=== PATIENT | female | born 1965 | race Hispanic/Latino ===

== ENCOUNTER 2025-04-13 11:27 | Emergency (ER) | payer BC, OTHER ==
[~2025-04-13] VITALS: Ht 162.6 cm; Wt 108.9 kg
--- NOTE | 2025-04-13 11:45 | EKG ---
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
[2025-04-13] MEDS: 0.9%NACL 1000ML 1,000 ML IV ONE (11:46)
--- NOTE | 2025-04-13 11:49 | ERN ---
General Chief Complaint: Dizzy/Light Headed Stated Complaint: DIZZY Time Seen by MD: 11:28 Source: patient History of Present Illness Initial Comments Patient is a 59-year-old female coming in complaining of dizziness. Per patient the dizziness is a it is increased when she rotates her head. She also states that while standing still she does not feel dizzy. No other current complaints. Allergies: Coded Allergies: morphine (Unverified Allergy, Unknown, 04/13/25) Past Medical History Past Medical History: Cancer, Hypertension Past Surgical History: Appendectomy, Other Surgical History Other: breast sx ROS Dictation CONSTITUTIONAL: No chills, no fever, no weakness, no diaphoresis, no malaise. HEAD/FACE: No signs of trauma. EENT: No eye pain, no blurred vision, no tearing, no double vision, no ear pain, no ear discharge, no nose pain, no nasal congestion, no throat pain, no throat swelling, no mouth pain. RESPIRATORY: No cough, no orthopnea, no SOB, no stridor, no wheezing. CARDIOVASCULAR: No chest pain, no edema, no palpitations, no syncope. GASTROINTESTINAL/ABDOMINAL: No abdominal pain, no constipation, no diarrhea, no nausea, no vomiting. GENITOURINARY: No abnormal discharge, no dysuria, no frequent urination, no hematuria. No complaints of pain in the genitals. MUSCULOSKELETAL: No back pain, no gout, no joint pain, no joint swelling, no muscle pain, no muscle stiffness, no neck pain. INTEGUMENTARY: No change in color, no change in hair/nails, no dryness, no lesion, no lumps, no rash. NEUROLOGICAL/PSYCH: No anxiety, not depressed, no emotional problem, no headache, no numbness, no pre-existing deficit, no history of seizures, no tremors, no weakness. HEMATOLOGIC/LYMPHATIC: Not anemic, no history of blood clots, no apparent bleeding, no bruising, glands not swollen. All Systems Negative, Except as Noted. Physical Exam Physical Exam Dictation VITAL SIGNS: Reviewed. GENERAL APPEARANCE: Alert, oriented x3, no acute distress, obese. HEAD AND FACE: Non-traumatic. EYES: PERRL, pink conjunctivas, eyelid no trauma, anterior chamber clear. EARS: Pinnas intact and no signs of trauma or erythema. Ear canals clear and no discharge. TMs no erythema. NOSE: No discharge, no bleeding. OROPHARYNX: Mouth normal, teeth no caries, tongue pink. Pharynx clear, no erythema. Tonsils no exudates, no abscesses noted. Mucous membrane moist. NECK: Supple, non-tender, no thyromegaly, no masses, no JVD, no bruits. BREAST: Deferred. CHEST: No tenderness, no crepitus, no paradoxical movement, no retractions. LUNGS: Clear, well-ventilated, symmetric, no rales, no wheezing, no rhonchi, no stridor, good breath sounds bilaterally. HEART: Regular rate, regular rhythm, no murmur, no gallops. VASCULAR: No peripheral edema. ABDOMEN: Soft, positive bowel sounds, nondistended, no guarding, nontender, no rebound, no masses no hepatomegaly, no splenomegaly, no Snow's sign, no hernias. RECTAL: Deferred. GENITAL: Deferred. NEUROLOGICAL: Normal speech, gross motor function intact, gross sensory function intact. MUSCULOSKELETAL: Neck nontender, full range of motion, back nontender, full range of motion. EXTREMITIES: Nontender, full range of motion. SKIN: Color pink, dry, no turgor, no rash, no lacerations, no abrasions, no contusions. LYMPHATICS: Deferred. Results Laboratory and Microbiology Lab and Micro Result Laboratory Tests Test 04/13/25 11:40 04/13/25 12:13 White Blood Count 4.2 K/uL (4.8-10.8) L Red Blood Count 4.54 MIL/uL (4.00-5.50) Hemoglobin 12.4 g/dL (12.0-16.0) Hematocrit 38.6 % (36-48) Mean Corpuscular Volume 85.0 fL (79-99) Mean Corpuscular Hemoglobin 27.3 pg (27.0-33.0) Mean Corpuscular Hemoglobin Concent 32.1 g/dL (32.0-36.0) Red Cell Distribution Width 13.2 % (11.0-15.5) Platelet Count 232 K/uL (130-400) Mean Platelet Volume 10.6 fL (7.5-10.5) H Immature Granulocyte % (Auto) 0.2 % (0-1) Neutrophils (%) (Auto) 68.4 % (40.0-77.0) Lymphocytes (%) (Auto) 24.7 % (21.0-51.0) Monocytes (%) (Auto) 5.7 % (3.0-13.0) Eosinophils (%) (Auto) 0.5 % (0.0-8.0) Basophils (%) (Auto) 0.5 % (0.0-5.0) Neutrophils # (Auto) 2.9 K/uL (1.8-7.7) Lymphocytes # (Auto) 1.0 K/uL (1.0-4.8) Monocytes # (Auto) 0.2 K/uL (0.1-1.0) Eosinophils # (Auto) 0.02 K/uL (0.00-0.70) Basophils # (Auto) 0.02 K/uL (0.00-0.20) Absolute Immature Granulocyte (auto 0.01 K/uL (0-1) Nucleated Red Blood Cells 0.0 % (0.0-0.19) Sodium Level 142 mmol/L (136-145) Potassium Level 3.8 mmol/L (3.5-5.1) Chloride Level 106 mmol/L (101-111) Carbon Dioxide Level 27 mmol/L (21-32) Blood Urea Nitrogen 13 mg/dL (7-18) Creatinine 0.8 mg/dL (0.5-1.0) Glomerular Filtration Rate Calc 85 mL/min (>90) Random Glucose 116 mg/dL (70-105) H Total Calcium 8.5 mg/dL (8.5-10.1) Magnesium Level 2.10 mg/dL (1.80-2.40) Troponin I High Sensitivity 4 ng/L (4-50) Urine Color LIGHT-YELLOW (YELLOW) Urine Appearance HAZY (CLEAR) Urine pH 7.5 (5.0-8.0) Urine Specific [place] 1.017 (1.001-1.031) Urine Protein NEGATIVE mg/dL (NEGATIVE) Urine Glucose (UA) NEGATIVE mg/dL (NEGATIVE) Urine Ketones NEGATIVE mg/dL (NEGATIVE) Urine Occult Blood NEGATIVE (NEGATIVE) Urine Nitrate 2+ (NEGATIVE) H Urine Bilirubin NEGATIVE mg/dL (NEGATIVE) Urine Urobilinogen 0.2 mg/dL (0.2-1.0) Urine Leukocyte Esterase NEGATIVE Patricia/uL Urine RBC 2-5 /HPF (0-1) H Urine WBC 2-5 /HPF (0-1) H Urine Squamous Epithelial Cells FEW /HPF (0-2) Urine Bacteria MOD /HPF (None Seen) Labs Reviewed?: Yes EKG/XRAY/US/CT/MRI EKG Comment 04/13/2025 time 11:39 a.m. Ventricular rate 64 Sinus rhythm [place] [address] wave elevation or depression X-RAY Comment IMAGING REPORT Signed PATIENT: MIKE PAUL MR#: [id number] : 1965 SEX: F AGE: 59 LOCATION: ED ORDER 1132 STATUS: REG ER REPORT#: [id number] SERVICE 1131 REASON: CP ORDERING PHYSICIAN: RAISA MEMBRENO MD PROCEDURE: CXR1VW - CHEST 1VW EXAM: Chest radiograph 1 view HISTORY: Chest pain COMPARISON: None FINDINGS: No pulmonary consolidations. No pleural effusion or pneumothorax. Normal cardiomediastinal silhouette and pulmonary vasculature. No suspicious osseous lesions. IMPRESSION: No acute cardiopulmonary disease. /[place] DICTATED BY: CLARENCE VALENTE MD DATE: 04/13/251429 ELECTRONICALLY SIGNED BY: CLARENCE VALENTE MD DATE: 04/13/251429 CT Scan Comment [id number] [id number] IMAGING REPORT Signed PATIENT: MIKE PAUL MR#: [id number] : 1965 SEX: F AGE: 59 LOCATION: ED ORDER 1143 STATUS: REG ER REPORT#: [id number] SERVICE 1142 REASON: vertigo ORDERING PHYSICIAN: RAISA MEMBRENO MD PROCEDURE: HEAD WO - CT HEAD/BRAIN W/O CONTRAST EXAM:CT Head Without IV Contrast CLINICAL HISTORY: Vertigo TECHNIQUE: Axial computed tomography images of the head/brain were obtained without intravenous contrast. COMPARISON: None provided. FINDINGS: BRAIN: No evidence of acute intracranial hemorrhage, mass lesion, or acute territorial infarct. No midline shift or extra-axial fluid collection seen. Mild cerebral atrophy is noted. VENTRICLES AND CISTERNS: Basal cisterns are patent. No hydrocephalus. ORBITS: Orbits and visualized globes appear unremarkable. SINUSES AND MASTOID AIR CELLS: Paranasal sinuses and mastoid air cells are clear. CALVARIUM AND BONES: No calvarial fracture or focal bony abnormality identified. SOFT TISSUES: Unremarkable. IMPRESSION: No acute intracranial abnormality detected. /[place] DICTATED BY: CLARENCE VALENTE MD DATE: 04/13/251504 ELECTRONICALLY SIGNED BY: CLARENCE VALENTE MD DATE: 04/13/251504 MDM MDM: Differential diagnosis: Dehydration, UTI, vertigo, sinusitis, Rationale: Tests considered and ordered secondary to shared decision making include: Previous outside records reviewed: Old ER visits. Risk of complication and/or morbidity or mortality of patient management: None Medications-Per medication reconciliation Need for hospitalization: Patient does not meet criteria for hospitalization. Need for emergency major/minor surgery: No There are no social concerns with this patient. Prescription drug management Prescriptions will include symptomatic care Patient's prior external medical records from other ER visits were reviewed by me as indicated. Prior testing and results from previous visits were reviewed. Prior tests were taken into account with medical decision making and resource utilization, independent historian/historians were used to obtain complete medical history. I independently interpreted the test that were performed, results were reviewed by me and considered findings on radiology if ordered. In his is a 59-year-old female coming in to be evaluated for dizziness. CT of the head and laboratory workup did not disclose acute findings. Urinary tract infection was found on urinary analysis patient had just finished antibiotics but still has a urinary tract infection. We will be switching antibiotics to Bactrim and I also advise her close follow up with PCP to make sure that the urinary tract infection has resolved. ED Course Orders Procedure Category Date Status Time Cbc With Differential LAB 04/13/25 Complete 11:31 Chest 1vw RAD 04/13/25 Resulted 11:31 12 Lead Ekg Tracing- EKG 04/13/25 Complete Technical 11:31 0.9%Nacl 1000ml (Ns PHA 04/13/25 Complete 1000ml) 12:00 Magnesium LAB 04/13/25 Complete 11:31 Troponin I High LAB 04/13/25 Complete Sensitivity 11:31 Urinalysis Profile LAB 04/13/25 Complete 11:31 Basic Metabolic Panel LAB 04/13/25 Complete 11:31 Ct Head/Brain W/O CT 04/13/25 Resulted Contrast 11:42 Meclizine Hcl 25 Mg PHA 04/13/25 Complete (Antivert 25 Mg) 12:00 Culture Urine BLAS 04/13/25 In Process 12:36 Current Medications Medications (Trade) Dose Ordered Sig/Pankaj Route PRN Reason Start Time Stop Time Status Last Admin Dose Admin Meclizine HCl (ANTIvert 25 mg) 25 mg ONCE ONCE PO 04/13/25 12:00 04/13/25 12:01 DC 04/13/25 12:07 Sodium Chloride 1,000 ml @ 0 mls/hr ONCE ONCE IV 04/13/25 12:00 04/13/25 12:01 DC 04/13/25 11:46 Vital Signs Date Time Temp Pulse Resp B/P (MAP) Pulse Ox O2 Delivery O2 Flow Rate FiO2 04/13/25 11:33 97.3 67 18 139/64 99 Room Air* 0 21 04/13/25 11:30 97.3 67 18 139/64 99 Room Air 0 DX & DISP Disposition: Discharge Departure Impression: Primary Impression: UTI (urinary tract infection) Additional Impression: Dehydration Condition: Stable Scripts Sulfamethoxazole/Trimethoprim (Bactrim Ds Tablet) 800 Mg-160 Mg Tablet 1 TAB PO BID for 10 Days, #20 TAB 0 Refills Prov: RAISA MEMBRENO MD 04/13/25 Additional Instructions: FOLLOW-UP WITH PRIMARY CARE PROVIDER IN 1 TO 2 DAYS. TAKE MEDICATIONS DIRECTED HERE IN THE EMERGENCY ROOM. OKAY TO CONTINUE HOME MEDICATIONS UNLESS OTHERWISE DISCUSSED DURING YOUR VISIT IN THE EMERGENCY ROOM TODAY. RETURN TO YOUR NEAREST EMERGENCY ROOM IF SYMPTOMS WORSEN OR IF THERE IS NO IMPROVEMENT. CALL 911 IF YOU NEED IMMEDIATE ASSISTANCE. TAKE TYLENOL FLAH-[id number]-DXLNPAM NEEDED AND IF NO CONTRAINDICATIONS ARE PRESENT. INCREASE ORAL HYDRATION. A WOUND CULTURE OR URINE CULTURE WAS ORDERED HERE IN THE EMERGENCY ROOM DEPARTMENT PLEASE FOLLOW-UP WITH PRIMARY CARE PROVIDER AND ADVISE THEM TO GET REPORTS FROM OUR FACILITY. IF YOU HAD ANY COTY WRAP/SPLINTS THAT WERE APPLIED HERE, PLEASE DO NOT REMOVE THEM UNTIL YOU SEE YOUR PRIMARY CARE OR SPECIALTY. Referrals: Referrals: KELLIE ALBARADO MD (PCP) Time of Disposition: 14:18 RAISA MEMBRENO MD Apr 13, 2025 11:49
[2025-04-13 11:51] LABS: IMMATURE GRANULOCYTE ABSOLUTE 0.01 K/uL (0-1); NUCLEATED RED BLOOD CELLS 0.0 % (0.0-0.19); PLATELET COUNT (AUTO) 232 K/uL (130-400); RED BLOOD CELL COUNT(AUTO) 4.54 MIL/uL (4.00-5.50); RED CELL DISTRIBUTION WIDTH 13.2 % (11.0-15.5); WHITE BLOOD COUNT (AUTO) 4.2 K/uL (4.8-10.8)
[2025-04-13 12:01] LABS: CREATININE 0.8 mg/dL (0.5-1.0); GLOMERULAR FILTR. RATE CALC 85.0 mL/min (>90); GLUCOSE,RANDOM 116.0 mg/dL (70-105); SODIUM SERUM 142.0 mmol/L (136-145); UREA NITROGEN, BLOOD 13.0 mg/dL (7-18)
--- NOTE | 2025-04-13 12:16 | NUR ---
CT EXAM DELAY: PER TRANSPORTER, NURSE IN WITH PATIENT.
[2025-04-13 12:34] LABS: GLUCOSE, URINE (UA) NEGATIVE (NEGATIVE); LEUKOCYTE ESTERASE ,URINE NEGATIVE Leu/uL (NEGATIVE); NITRATE,URINE 2+ (NEGATIVE); OCCULT BLOOD,URINE NEGATIVE (NEGATIVE)
[2025-04-13 12:35] LABS: ADD UA MICROSCOPIC YES; APPEARANCE,URINE HAZY (CLEAR)
[2025-04-13 12:39] LABS: SQUAMOUS EPITHELIAL CELL,UR FEW /HPF (0-2)
--- NOTE | 2025-04-13 13:31 | HMCIMG ---
EXAM: Chest radiograph 1 view HISTORY: Chest pain COMPARISON: None FINDINGS: No pulmonary consolidations. No pleural effusion or pneumothorax. Normal cardiomediastinal silhouette and pulmonary vasculature. No suspicious osseous lesions. IMPRESSION: No acute cardiopulmonary disease. /[place]
--- NOTE | 2025-04-13 14:06 | HMCIMG ---
EXAM:CT Head Without IV Contrast CLINICAL HISTORY: Vertigo TECHNIQUE: Axial computed tomography images of the head/brain were obtained without intravenous contrast. COMPARISON: None provided. FINDINGS: BRAIN: No evidence of acute intracranial hemorrhage, mass lesion, or acute territorial infarct. No midline shift or extra-axial fluid collection seen. Mild cerebral atrophy is noted. VENTRICLES AND CISTERNS: Basal cisterns are patent. No hydrocephalus. ORBITS: Orbits and visualized globes appear unremarkable. SINUSES AND MASTOID AIR CELLS: Paranasal sinuses and mastoid air cells are clear. CALVARIUM AND BONES: No calvarial fracture or focal bony abnormality identified. SOFT TISSUES: Unremarkable. IMPRESSION: No acute intracranial abnormality detected. /[place]
[2025-04-13] MEDS ORDERED: SULF1TAB42 PO (14:19)
[2025-04-13 14:46] VITALS: BP 143/67; PULSE 63; RESP 17; TEMP 98.2; O2SAT 99
--- NOTE | 2025-04-13 14:52 | NUR ---
PT STABLE NO DISTRESS VITALS WNL NO C/O, PT VITALS WNL. PT GIVEN INSTRUCTIONS FOR HOME, PT VERBALIZED UNDERSTANDING. PT IV REMOVED CATHETER INTACT, PT TAKEN OUT IN W/C DRIVEN HOME BY FRIEND.
== END 2025-04-13 14:54 | disposition home or self-care (01) ==
LOC: EDH 11:27
DX: N39.0 Urinary tract infection, site not specified (principal); E86.0 Dehydration; I10 Essential (primary) hypertension; Z88.5 Allergy status to narcotic agent; Z90.49 Acquired absence of other specified parts of digestive tract
CPT/HCPCS: 99285; 96360; 70450; 71045; 83735; 84484; 80048; 85025; 87086 ×2; 87186; 81001; 36415; 93005; J7030